=== PATIENT | male | born 1995 | race African-American/Black ===

== ENCOUNTER 2016-08-29 12:44 | Emergency (ER) | payer SELFPAY ==
[~2016-08-29] VITALS: Ht 165.1 cm; Wt 58.0 kg
[~2016-08-29 12:44] MED LIST: OSEL75 PO; Z.0.NO CURRENT MEDS; ZOFR4TAB3 SL
[2016-08-29 12:46] VITALS: BP 121/72; PULSE 77; RESP 14; TEMP 98.2; O2SAT 99
--- NOTE | 2016-08-29 13:00 | PD ---
Physical Exam Date Seen by Provider: August 29, 2016 Time Seen by Provider: 12:57 Narrative 21 yo male here for evaluation of sore throat, cough. Has had this for a few days. Concerned for strep. No sick contacts. No congestion. Has cough some blood. No abdominal pain. No nausea or vomit or diarrhea. No medical issues. Vitals sign stable. Patient awaiting bed placement. Data Data Last Documented VS Vital Signs Date Time Temp Pulse Resp B/P Pulse Ox O2 Delivery O2 Flow Rate FiO2 08/29/16 12:46 98.2 77 14 121/72 99 MDM Medical Record Reviewed: Yes Supervised Visit with IVANNA: No James Painter August 29, 2016 13:00
--- NOTE | 2016-08-29 13:47 | PD ---
HPI Chief Complaint: ENT Complaint Time Seen by Provider: 13:10 Travel History International Travel<30 days: No Contact w/Intl Traveler<30days: No Traveled to known affect area: No History of Present Illness HPI Patient's 21-year-old male presenting with a cough, sore throat. Patient states his symptoms started last Sunday. He denies any fevers, chills, nausea , vomiting, headache or shortness of breath. He reports the sore throat and cough are worse at night. He denies any runny stuffy nose. He has no other complaints at this time. [facility] Past Medical History Medical History: Denies Significant Hx Developmental Delay: No Diminished Hearing: No Immunizations Current: Yes Past Surgical History Surgical History: No Previous Surgery Social History Alcohol Use: No Tobacco Use: No Substance Use: No Allergies-Medications (Allergen,Severity, Reaction): Coded Allergies: No Known Allergies (Verified , 08/29/16) Reported Meds & Prescriptions Reported Meds & Active Scripts Active Tamiflu (Oseltamivir Phosphate) 75 Mg Cap 75 Mg PO BID 5 Days Zofran ODT (Ondansetron HCl) 4 Mg Tab 4 Mg SL Q6HPRN 2 Days FOR NAUSEA/VOMITING Reported No Current Meds (Miscellaneous Medication) Misc Review of Systems Except as stated in HPI: all other systems reviewed are Neg HENT: Positive: Sore Throat, No: Headaches Cardiovascular: No: Chest Pain or Discomfort Respiratory: Positive: Cough, No: Shortness of Breath Gastrointestinal: No: Nausea, Abdominal Pain Physical Exam Narrative GENERAL: Well-nourished, well-developed patient. SKIN: Focused skin assessment warm/dry. HEAD: Normocephalic. ENT: Mucosa pink and moist. No erythema or exudates. No uvular edema. No uvular , palatal, or tonsillar deviation. Airway patent. Nasal turbinates appear normal without nasal blood, purulent drainage or septal hematoma. EYES: No scleral icterus. No injection or drainage. NECK: Supple, trachea midline. No JVD or lymphadenopathy. CARDIOVASCULAR: Regular rate and rhythm without murmurs, gallops, or rubs. RESPIRATORY: Breath sounds equal bilaterally. No accessory muscle use. GASTROINTESTINAL: Abdomen soft, non-tender, nondistended. MUSCULOSKELETAL: No cyanosis, or edema. BACK: Nontender without obvious deformity. No CVA tenderness. Data Data Last Documented VS Vital Signs Date Time Temp Pulse Resp B/P Pulse Ox O2 Delivery O2 Flow Rate FiO2 08/29/16 12:46 98.2 77 14 121/72 99 Orders Group A Rapid Strep Screen (08/29/16 13:16) Strep Culture (Group A) (08/29/16 13:15) MDM Medical Decision Making Medical Screen Exam Complete: Yes Emergency Medical Condition: Yes Interpretation(s) Vital Signs Date Time Temp Pulse Resp B/P Pulse Ox O2 Delivery O2 Flow Rate FiO2 08/29/16 12:46 98.2 77 14 121/72 99 Differential Diagnosis Viral syndrome versus allergic rhinitis versus bronchitis versus pharyngitis versus other Narrative Course Patient is a 21-year-old male presenting to emergency for evaluation of sore throat and cough. Physical examination appears most consistent with a viral syndrome. Symptoms have been ongoing for approximately 6 days. Patient is afebrile, his vital signs are stable. Strep culture was obtained due to exposure. Strep is negative. Patient was encouraged to continue symptomatic management. He was encouraged follow-up with primary care return to emergency department for any new or worsening symptoms. Patient will be given a prescription for a backup antibiotic however he is again encouraged to continue symptom management. He verbalized understanding of these instructions. Patient is stable for discharge. Diagnosis Primary Impression: Viral syndrome Referrals: [facility] Primary Care Physician Patient Instructions: General Instructions, Viral Syndrome (GEN) Additional Instructions: Continue with symptom management Follow-up with a primary doctor Return to emergency department for any new or worsening symptoms If you begin to take antibiotics, complete full course of therapy as prescribed Med/Other Pt SpecificInfo: Prescription(s) given Scripts Amoxicillin 875 Mg Szx056 Mg PO BID 10 Days Ref 0 Prov:Ban Alejandro 08/29/16 Benzonatate (Tessalon Perles)100 Mg Dco223 Mg PO TID PRN (COUGH) 5 Days Ref 0 Prov:Ban Alejandro 08/29/16 Disposition: 01 DISCHARGE HOME Condition: Stable Ban Alejandro August 29, 2016 13:47
[2016-08-29] MEDS ORDERED: AMOX875T PO (14:34)
[2016-08-29] MEDS ORDERED: BENZ100 PO (14:34)
== END 2016-08-29 15:24 | disposition home or self-care (01) ==
LOC: NEPK 12:44
DX: B34.9 Viral infection, unspecified (principal); R05 Cough; R07.0 Pain in throat
CPT/HCPCS: 87081; 87880; 99284